=== PATIENT | female | born 2000 | race Caucasian/White ===

== ENCOUNTER 2020-09-17 02:02 | Inpatient (IN) ==
[2020-09-17] MEDS ORDERED: ONDANSETRON 4 MG OD TAB PO STA (02:37)
[2020-09-17 02:46] LABS: Appearance Urine Clear (Clear); Bilirubin Urine Negative (Negative); Blood Urine Negative (Negative); Color Urine Yellow; Glucose Urine UA Negative (Negative); Ketones Urine Negative (Negative); Leukocyte Esterase Urine Negative (Negative); Nitrite Urine Negative (Negative); Protein Urine Negative (Negative); Specific Gravity Urine 1.023 (1.000-1.030); Urobilinogen Urine Negative (Negative)
--- NOTE | 2020-09-17 02:49 | Emergency Department Note ---
History of Present Illness General Chief complaint: Mental Health Evaluation Stated complaint: SEVERE DEPRESSION Time Seen by Provider: 09/17/20 02:22 Source: patient Mode of arrival: ambulatory Limitations: no limitations History of Present Illness Provider complaint: Mental health evaluation Maximum Pain Intensity: 4 This is a 20-year-old female who presents emergency department with a friend for a mental health evaluation. Patient states she has been feeling more depressed recently and is also had suicidal thoughts. Patient denies any specific plan more recently. States she does have a prior history of suicidal thoughts and has previously self harmed. Patient states she was seen here several days ago due to nausea and vomiting and admitted to being noncompliant with her current medications. She was written prescriptions for her medications and given additional medication for nausea but she states she threw them away. When asked why she states "I do not know". Patient states her psychiatrist had instructed her to come to the emergency room if she has any "bad thoughts". Pt seen during a time of high acuity and national emergency pandemic while wearing PPE. Home Medications Medication Instructions Recorded Confirmed Type fluvoxamine 100 mg PO DAILY #7 tab 09/13/20 09/17/20 Rx lamotrigine [Lamictal] 150 mg PO DAILY #7 tab 09/13/20 09/17/20 Rx ondansetron HCl [Zofran] 4 mg PO Q6H PRN #6 tab 09/13/20 09/17/20 Rx quetiapine 25 mg PO DAILY #7 tab 09/13/20 09/17/20 Rx Allergies Allergy/AdvReac Type Severity Reaction Status Date / Time No Known Allergies Allergy Unverified 09/17/20 11:48 Past Med/Surg History Medical History (Updated 09/17/20 @ 12:15 by Jessy Hutton MD) No pertinent past medical history OCD (obsessive compulsive disorder) Self-cutting of wrist Social History Smoking Status: Never smoker Preferred Language: Kitt[place] Communication Ability: Effective Feels Safe at Home: No Review of Systems See HPI for pertinent positives & negatives. and A total of 10 systems reviewed and were otherwise negative Physical Exam Vital Signs Vital Signs - 24 hr 09/17/20 02:10 Temperature 36.9 C Temperature Source Temporal Artery Scan Pulse Rate 92 H Respiratory Rate 16 Blood Pressure 143/105 H Blood Pressure Mean 117 Pulse Oximetry 99 Sepsis Recent Fever Within 48 Hours No Sepsis New/Unexplained Change in Mental Status No Sepsis Action Taken by Nursing No Action Required GENERAL: alert, well appearing, well nourished, no distress, non-toxic EYE EXAM: normal conjunctiva, PERRL and EOM's grossly intact OROPHARYNX: no exudate, no erythema, lips, buccal mucosa, and tongue normal and mucous membranes are moist NECK: supple, no nuchal rigidity, no adenopathy, non-tender LUNGS: Clear to auscultation. Normal chest wall mechanics, no w/r/r HEART: no murmurs, S1 normal and S2 normal ABDOMEN: abdomen soft, non-tender, normo-active bowel sounds, no masses, no rebound or guarding. BACK: Back is symmetrical on inspection and there is no deformity, no midline tenderness, no CVA tenderness. SKIN: no rashes and no bruising UPPER EXTREMITIES: upper extremities are grossly normal. FROM, nml pulses b/l. LOWER EXTREMITIES: No pitting edema. FROM, nml pulses b/l. NEURO EXAM: Normal sensorium, cranial nerves II-XII grossly intact, normal speech, no gross weakness of arms, no gross weakness of legs. Gross sensation intact. Course Course 0435: Patient seen by case mgmt and is agreeable with plan for voluntary inpatient treatment. [facility] contacted regarding the patient. 0800: Patient awaiting evaluation by [facility]. for likely admission. Administered Medications Hydroxyzine HCl (Hydroxyzine Hcl 25 Mg Tab) 50 mg PO HSZ PRN PRN Reason: Insomnia Stop: 10/17/20 08:13 Last Admin: 09/17/20 22:55 Dose: 50 mg Documented by: [id number] Admin: 09/17/20 21:59 Dose: 50 mg Documented by: [id number] Lamotrigine (Lamotrigine 25 Mg Tab) 25 mg PO QAM SYLVESTER Stop: 10/17/20 12:29 Last Admin: 09/17/20 12:49 Dose: 25 mg Documented by: [id number] Discontinued Medications Escitalopram Oxalate (Escitalopram Oxalate 10 Mg Tab) 5 mg PO ONCE ONE Stop: 09/17/20 12:27 Last Admin: 09/17/20 12:50 Dose: 5 mg Documented by: [id number] Ondansetron HCl (Ondansetron 4 Mg Od Tab) 4 mg PO NOW STA Stop: 09/17/20 02:38 Last Admin: 09/17/20 02:45 Dose: 4 mg Documented by: [id number] Medical Decision Making Differential Diagnosis Differential diagnoses considered include mood disorder, infection, hypoglycem ia, electrolyte abnormalities, cardiac sources, intracerebral event, toxicologic, neurologic, as well as others. Medical Records Attestation: I reviewed the patient's medical records. Home Medications Current Medication List: was personally reviewed by me Laboratory Data Attestation: I reviewed the patient's lab results. Result diagrams: 09/17/20 02:51 09/17/20 02:51 Lab Results 09/17/20 09/17/20 09/17/20 Range/Units 02:15 02:15 02:51 WBC (4.8-10.8) K/uL RBC (4.2-5.4) M/uL Hgb (12.0-16.0) g/dL Hct (37-47) % MCV (80-100) fL MCH (25-34) pg MCHC (32-36) g/dL RDW Std Deviation (36.4-46.3) fL RDW Coeff of Sapna (11.5-14.5) % Plt Count (130-400) K/uL MPV (7.4-10.4) fL Immature Gran % (Auto) % Neut % (Auto) % Lymph % (Auto) % [place] % (Auto) % Eos % (Auto) % Baso % (Auto) % Neut # (Auto) (1.4-6.5) K/uL Lymph # (Auto) (1.2-3.4) K/uL [place] # (Auto) (0.11-0.59) K/uL Eos # (Auto) (0-0.5) K/uL Baso # (Auto) (0-0.2) K/uL Immature Gran # (Auto) (0.00-0.02) K/uL Sodium (136-145) mmol/L Potassium (3.5-5.1) mmol/L Chloride (98-107) mmol/L Carbon Dioxide (21-32) mmol/L Anion Gap (3-11) BUN (7-18) mg/dl Creatinine (0.6-1.2) mg/dl Est Cr Clr Drug Dosing ml/min Est GFR ( Amer) Est GFR (Non-Af Amer) BUN/Creatinine Ratio (10-20) Glucose (70-99) mg/dl Calcium (8.5-10.1) mg/dl Total Bilirubin (0.2-1) mg/dl AST (15-37) U/L ALT (12-78) U/L Alkaline Phosphatase (45-117) U/L Total Protein (6.4-8.2) gm/dl Albumin (3.4-5.0) gm/dl Globulin (2.5-4.0) gm/dl Albumin/Globulin Ratio (0.9-2) TSH (0.300-4.500) uIu/ml HCG, Qual Negative (Negative) Urine Color Yellow Urine Appearance Clear (Clear) Urine pH 7.0 (4.5-7.5) Ur Specific [place] 1.023 (1.000-1.030) Urine Protein Negative (Negative) Urine Glucose (UA) Negative (Negative) Urine Ketones Negative (Negative) Urine Blood Negative (Negative) Urine Nitrite Negative (Negative) Urine Bilirubin Negative (Negative) Urine Urobilinogen Negative (Negative) Ur Leukocyte Esterase Negative (Negative) Salicylates (2.8-20) mg/dl Urine Opiates Screen Neg (Neg) Ur Methadone, Qual Neg (Neg) Acetaminophen (10-30) ug/ml Urine Barbiturates Neg (Neg) Ur Phencyclidine (PCP) Neg (Neg) U Amphetamin/Meth Scrn Neg (Neg) MDMA (Ecstasy) Screen Neg (Neg) U Benzodiazepines Scrn Neg (Neg) Ur Cocaine Metabolite Neg (Neg) U Marijuana (THC) Screen Pos H (Neg) Ethyl Alcohol mg/dL (0-3) mg/dl COVID-19 Eval Order SARS-CoV-2 (PCR) (Negative) Influenza Type A (PCR) (Neg) Influenza Type B (PCR) (Neg) RSV (RT-PCR) (Neg) 09/17/20 09/17/20 09/17/20 Range/Units 02:51 02:51 02:51 WBC 9.71 (4.8-10.8) K/uL RBC 4.56 (4.2-5.4) M/uL Hgb 14.5 (12.0-16.0) g/dL Hct 42.4 (37-47) % MCV 93.0 (80-100) fL MCH 31.8 (25-34) pg MCHC 34.2 (32-36) g/dL RDW Std Deviation 46.4 H (36.4-46.3) fL RDW Coeff of Sapna 13.6 (11.5-14.5) % Plt Count 300 (130-400) K/uL MPV 9.8 (7.4-10.4) fL Immature Gran % (Auto) 0.2 % Neut % (Auto) 63.3 % Lymph % (Auto) 25.4 % [place] % (Auto) 10.2 % Eos % (Auto) 0.7 % Baso % (Auto) 0.2 % Neut # (Auto) 6.14 (1.4-6.5) K/uL Lymph # (Auto) 2.47 (1.2-3.4) K/uL [place] # (Auto) 0.99 H (0.11-0.59) K/uL Eos # (Auto) 0.07 (0-0.5) K/uL Baso # (Auto) 0.02 (0-0.2) K/uL Immature Gran # (Auto) 0.02 (0.00-0.02) K/uL Sodium 140 (136-145) mmol/L Potassium 3.6 (3.5-5.1) mmol/L Chloride 110 H (98-107) mmol/L Carbon Dioxide 26 (21-32) mmol/L Anion Gap 4.0 (3-11) BUN 10 (7-18) mg/dl Creatinine 0.80 (0.6-1.2) mg/dl Est Cr Clr Drug Dosing 105.7 ml/min Est GFR ( Amer) 122.2 Est GFR (Non-Af Amer) 105.4 BUN/Creatinine Ratio 12.9 (10-20) Glucose 96 (70-99) mg/dl Calcium 8.6 (8.5-10.1) mg/dl Total Bilirubin 0.6 (0.2-1) mg/dl AST 15 (15-37) U/L ALT 19 (12-78) U/L Alkaline Phosphatase 56 (45-117) U/L Total Protein 8.3 H (6.4-8.2) gm/dl Albumin 3.7 (3.4-5.0) gm/dl Globulin 4.6 H (2.5-4.0) gm/dl Albumin/Globulin Ratio 0.8 L (0.9-2) TSH 3.120 (0.300-4.500) uIu/ml HCG, Qual (Negative) Urine Color Urine Appearance (Clear) Urine pH (4.5-7.5) Ur Specific [place] (1.000-1.030) Urine Protein (Negative) Urine Glucose (UA) (Negative) Urine Ketones (Negative) Urine Blood (Negative) Urine Nitrite (Negative) Urine Bilirubin (Negative) Urine Urobilinogen (Negative) Ur Leukocyte Esterase (Negative) Salicylates < 1.7 L (2.8-20) mg/dl Urine Opiates Screen (Neg) Ur Methadone, Qual (Neg) Acetaminophen < 2 L (10-30) ug/ml Urine Barbiturates (Neg) Ur Phencyclidine (PCP) (Neg) U Amphetamin/Meth Scrn (Neg) MDMA (Ecstasy) Screen (Neg) U Benzodiazepines Scrn (Neg) Ur Cocaine Metabolite (Neg) U Marijuana (THC) Screen (Neg) Ethyl Alcohol mg/dL (0-3) mg/dl COVID-19 Eval Order SARS-CoV-2 (PCR) (Negative) Influenza Type A (PCR) (Neg) Influenza Type B (PCR) (Neg) RSV (RT-PCR) (Neg) 09/17/20 09/17/20 09/17/20 Range/Units 02:51 05:01 05:01 WBC (4.8-10.8) K/uL RBC (4.2-5.4) M/uL Hgb (12.0-16.0) g/dL Hct (37-47) % MCV (80-100) fL MCH (25-34) pg MCHC (32-36) g/dL RDW Std Deviation (36.4-46.3) fL RDW Coeff of Sapna (11.5-14.5) % Plt Count (130-400) K/uL MPV (7.4-10.4) fL Immature Gran % (Auto) % Neut % (Auto) % Lymph % (Auto) % [place] % (Auto) % Eos % (Auto) % Baso % (Auto) % Neut # (Auto) (1.4-6.5) K/uL Lymph # (Auto) (1.2-3.4) K/uL [place] # (Auto) (0.11-0.59) K/uL Eos # (Auto) (0-0.5) K/uL Baso # (Auto) (0-0.2) K/uL Immature Gran # (Auto) (0.00-0.02) K/uL Sodium (136-145) mmol/L Potassium (3.5-5.1) mmol/L Chloride (98-107) mmol/L Carbon Dioxide (21-32) mmol/L Anion Gap (3-11) BUN (7-18) mg/dl Creatinine (0.6-1.2) mg/dl Est Cr Clr Drug Dosing ml/min Est GFR ( Amer) Est GFR (Non-Af Amer) BUN/Creatinine Ratio (10-20) Glucose (70-99) mg/dl Calcium (8.5-10.1) mg/dl Total Bilirubin (0.2-1) mg/dl AST (15-37) U/L ALT (12-78) U/L Alkaline Phosphatase (45-117) U/L Total Protein (6.4-8.2) gm/dl Albumin (3.4-5.0) gm/dl Globulin (2.5-4.0) gm/dl Albumin/Globulin Ratio (0.9-2) TSH (0.300-4.500) uIu/ml HCG, Qual (Negative) Urine Color Urine Appearance (Clear) Urine pH (4.5-7.5) Ur Specific [place] (1.000-1.030) Urine Protein (Negative) Urine Glucose (UA) (Negative) Urine Ketones (Negative) Urine Blood (Negative) Urine Nitrite (Negative) Urine Bilirubin (Negative) Urine Urobilinogen (Negative) Ur Leukocyte Esterase (Negative) Salicylates (2.8-20) mg/dl Urine Opiates Screen (Neg) Ur Methadone, Qual (Neg) Acetaminophen (10-30) ug/ml Urine Barbiturates (Neg) Ur Phencyclidine (PCP) (Neg) U Amphetamin/Meth Scrn (Neg) MDMA (Ecstasy) Screen (Neg) U Benzodiazepines Scrn (Neg) Ur Cocaine Metabolite (Neg) U Marijuana (THC) Screen (Neg) Ethyl Alcohol mg/dL < 3.0 (0-3) mg/dl COVID-19 Eval Order CovFluRsv at [facility] SARS-CoV-2 (PCR) NEGATIVE (Negative) Influenza Type A (PCR) Negative (Neg) Influenza Type B (PCR) Negative (Neg) RSV (RT-PCR) Negative (Neg) MDM Narrative Patient here for mental health evaluation. Patient's labs reassuring. Patient does have a history of depression and suicidal ideation as well as prior self- harm. Patient tearful here but cooperative. Agreed with plan for voluntary mental health admission. Patient with a history of noncompliance as well as cannabis abuse which I feel is more likely contributing to her recurrent nausea and vomiting. Patient's noncompliance with her medications could be contributing also. I do not suspect other occult [facility] pathology, infectious or metabolic etiology of symptoms. Patient with a soft and nontender abdominal exam. No recurrent vomiting while in the emergency room. Impression & Plan Depression, Suicidal ideation, Cannabis abuse, Noncompliance Discharge Plan Visit Data Chief Complaint: Mental Health Evaluation Stated Complaint: SEVERE DEPRESSION ED Provider: Domenica Sutton Discharge Problem: Depression, Suicidal ideation, Cannabis abuse, Noncompliance Patient Disposition: Admitted As Inpatient Discharge Instructions Interventions: ED Discharge Assessment Last Done: 09/17/20 09:04 Discharge Problem: Depression Qualifiers: Depression Type: major depressive disorder Major depression recurrence: unspecified whether recurrent Active/Remission status: currently active Major depression episode severity: moderate Qualified Code(s): F32.1 - Major depressive disorder, single episode, moderate
[2020-09-17 03:04] LABS: Amphetamines+Metham, Urine Neg (Neg); Barbiturates, Urine Neg (Neg); Benzodiazepine, Urine Neg (Neg); Cocaine, Urine Neg (Neg); MDMA (Ecstacy), Urine Neg (Neg); Methadone, Urine Neg (Neg); Opiate, Urine Neg (Neg); Phencyclidine, Urine Neg (Neg)
[2020-09-17 03:04] LABS: Basophils # (auto) 0.02 K/uL (0-0.2); Basophils % (auto) 0.2 %; Eosinophils # (auto) 0.07 K/uL (0-0.5); Eosinophils % (auto) 0.7 %; Hematocrit (blood only) 42.4 % (37-47); Hemoglobin 14.5 g/dL (12.0-16.0); Immature Granulocytes # (auto) 0.02 K/uL (0.00-0.02); Immature Granulocytes % (auto) 0.2 %; Lymphocytes # (auto) 2.47 K/uL (1.2-3.4); Lymphocytes % (auto) 25.4 %; Mean Corpuscular Hemoglobin 31.8 pg (25-34); Mean Corpuscular Hgb Conc 34.2 g/dL (32-36); Mean Platelet Volume 9.8 fL (7.4-10.4); Monocytes # (auto) 0.99 K/uL (0.11-0.59); Monocytes % (auto) 10.2 %; Neutrophils # (auto) 6.14 K/uL (1.4-6.5); Neutrophils % (auto) 63.3 %; Platelet Count 300 K/uL (130-400); RDW Coefficient of Variation 13.6 % (11.5-14.5); RDW Standard Deviation 46.4 fL (36.4-46.3); Red Blood Count 4.56 M/uL (4.2-5.4); White Blood Count 9.71 K/uL (4.8-10.8)
[2020-09-17 03:21] LABS: Albumin Level 3.7 gm/dl (3.4-5.0); BUN Creatinine Ratio 12.9 (10-20); Calcium 8.6 mg/dl (8.5-10.1); Creatinine Clr Calc Pharmacy 105.7 ml/min; Est GFR (African American) 122.2; Est GFR (Non-African American) 105.4; Potassium 3.6 mmol/L (3.5-5.1)
[2020-09-17 03:25] LABS: Pregnancy Test, Serum Negative (Negative)
[2020-09-17 03:29] LABS: Acetaminophen < 2 ug/ml (10-30); Salicylate < 1.7 mg/dl (2.8-20)
[2020-09-17 03:32] LABS: Albumin Globulin Ratio 0.8 (0.9-2); Bilirubin,Total 0.6 mg/dl (0.2-1); Globulin 4.6 gm/dl (2.5-4.0); Thyroid Stimulating Hormone 3.12 uIu/ml (0.300-4.500); Total Protein 8.3 gm/dl (6.4-8.2)
[2020-09-17 07:02] LABS: Influenza A virus by PCR Negative (Neg); Influenza B virus by PCR Negative (Neg); RSV by PCR Negative (Neg); SARS CoV2 RNA(COVID-19) InHosp NEGATIVE (Negative)
[2020-09-17] MEDS ORDERED: MAGNESIUM HYDROXIDE SUSP 30 ML UDC PO PRN (08:14)
[2020-09-17] MEDS ORDERED: BISMUTH SUBSALICYLATE LIQD 236 ML PO PRN (08:14)
[2020-09-17] MEDS ORDERED: SODIUM CHLORIDE 0.65% NA SOLN 45 ML (OCEAN) PRN (08:14)
[2020-09-17] MEDS ORDERED: ACETAMINOPHEN 325 MG TAB PO PRN (08:14)
[2020-09-17] MEDS ORDERED: ALUMINUM/MAGNESIUM SUSP 30 ML UDC PO PRN (08:14)
[2020-09-17] MEDS ORDERED: ONDANSETRON 4 MG OD TAB PO PRN (08:16)
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
--- NOTE | 2020-09-17 10:51 | Emergency Department Note ---
ED Visit Note The patient was evaluated by mental health services. She will be admitted to 3 S. . : Depression Qualifiers: Depression Type: major depressive disorder Major depression recurrence: unspecified whether recurrent Active/Remission status: currently active Major depression episode severity: moderate Qualified Code(s): F32.1 - Major depressive disorder, single episode, moderate
[2020-09-17] MEDS ORDERED: ESCITALOPRAM OXALATE 10 MG TAB PO ONE (12:26)
[2020-09-17] MEDS: lamoTRIgine 25 MG TAB PO SCH (12:49)
[2020-09-17] MEDS: hydrOXYzine HCl 25 MG TAB PO PRN ×2 (21:59→22:55)
[2020-09-18] MEDS: ESCITALOPRAM OXALATE 10 MG TAB PO SCH (09:12)
[2020-09-18] MEDS: lamoTRIgine 25 MG TAB PO SCH (09:13)
--- NOTE | 2020-09-18 10:03 | Psychiatric Progress Note ---
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 Inpatient treatment is medically necessary due to the severity of symptoms and risk for self-harm if discharged. (1) Depression: 09/17 -outpatient diagnosis of bipolar type II, but on my assessment patient endorses primarily depressive symptoms, with insufficient hypomanic symptoms to meet criteria for bipolar 2. Cannot rule out an [place] II component. Gather collateral information to help clarify diagnosis. Care coordinated with outpatient clinician, ANTONINA Oden. -Patient would benefit from psychotherapy and medication adjustments. Discussed multiple medication options, and she would like to resume lamotrigine. We will need to start with standard dose titration (25 mg daily x 2 weeks, then 50 mg daily) as she has been off of it for a week. Reviewed risks, benefits, and side effects, including Ziegler-Juancarlos syndrome, and she expressed understanding. She is unsure if the Luvox has been helpful and reports severe night sweats that are disrupting sleep, so would like to try something else. Discussed other SSRI options, and she agreed to a trial of escitalopram after review of risk, benefits, and side effects. 5 mg dose today, and start 10 mg tomorrow, and titrate as tolerated. She has had intermittent GI symptoms, unclear if triggered by abruptly stopping marijuana a week ago or stopping her psychotropic medications. Continue ondansetron as needed and monitor. -Hydroxyzine as needed for sleep and anxiety. She does not wish to resume Seroquel as believes it caused her to feel sedated and unmotivated throughout the day (although this may be due to her regular cannabis use too). -Family meeting if willing. Patient believes she will need to medically withdrawal from school. -Encourage group attendance and participation, work on healthy coping skills and discharge safety plan. 09/18 - Continue treatment plan as above - reviewed standard titration of lamotrigine, could consider further titration of escitalopram as tolerated. - We did increase patient's prn dose of HS hydroxyzine to 75mg due to morning grogginess today - Pt requesting to know "should I be on more medication?" and discussing previous use of Vyvanse - discussed that consideration for need for additional medications could be assess once she is stabilized on her current regimen, but may not be necessary even then. - Pt simultaneously requesting rapid discharge, but also reporting clear goals for treatment here in the hospital that she hopes to achieve. - Not able to contract for safety outside of the hospital at this time (2) OCD (obsessive compulsive disorder): 09/17 -psychoeducation provided regarding diagnoses, start SSRI as above. Refer for psychotherapy (3) Cannabis abuse: 09/17 -reviewed risks of heavy cannabis use, patient states she is aware and has been educated about these previously. She actually stopped smoking pot about a week ago, and some of her symptoms may be due to withdrawal. Continue to provide education and encouragement for abstinence and development of healthier coping skills. (4) Self-cutting of wrist: Risk Factors Assessment Male: No : No Do You Have Access To A Gun?: No Health Problems: No Mental Health Diagnoses: Yes Substance Use Disorders: Yes Previous Attempt: No Family History of Suicide: No Previous Psychiatric Hospitalization: Yes Hopelessness: Yes Smoker: No Protective Factors Assessment Voodoo Beliefs: No : No Responsible for Young Children: No Employed: No Stable Relationships: No Supportive Family: No Good Rapport with Provider: Yes Interval History Identifying Information DONNA EDDY is a 20-year-old F [employer] student from [place] who currently lives in [place] with roommates, has a history of bipolar disorder and anxiety, and was admitted on 09/17/20 08:14 on a 201 voluntary commitment for worsening mood, medication nonadherence, and suicidal thoughts. Chief Complaint "I'm a lot better today." Review of Systems Notes Constitutional: reports feeling groggy this AM Cardiovascular: denied Respiratory: denied Gastrointestinal: denied Neurological: denied Psychiatric: denies symptoms other than stated above Total of at least 10 systems reviewed, pertinent positives as above and in HPI. Sleep Information Total Hours of Sleep: 6.25 Meal Information Percent Meal Consumed - Breakfast: 90 Percent Meal Consumed - Lunch: 0 Percent Meal Consumed - Dinner: 100 Nutrition Comment: Pt had food brought in. Subjective Subjective Patient was seen & assessed and interval progress reviewed with treatment team. Staff report the patient has been participating in group programming. She is being encouraged to consider a support meeting, but has admitted to a strained relationship with parents. Pt was seen today to assess progress since admission. Pt states "I'm a lot better today." She shares that she had been feeling rather depressed and prior to her admission she "would wake up crying, then cry a lot throughout the day." Pt states that she is happy as "I only cried twice today, and I didn't cry when I first woke up." Pt shares that her depression seems to be lifted a bit, but states she is now feeling more anxious. She has been attending groups and processing things she would like to see change when she is discharged - "I'm just trying to think of all the things I've done and all the things I need to do, it's just a lot to keep track of." Pt states that she slept well last evening with hydroxyzine, but does feel she was overly groggy this morning. She is also concerned that the escitalopram may be causing fatigue as well. Pt admits that "the negativity" is better, but with regard to suicidality she states "I'm not too sure, it's pretty sporadic. I feel fine now, but there are times I still find myself sitting someone and just staring off wondering what the point of all this is." Pt admits that she is still very focused on discharge, and was informed of our anticipated length of stay to ensure stability through the weekend. Pt simultaneous states that she is wanting to go home, but also stating "I think it's really good that I'm here and I need to work on what I need to change, people I need to stop talking to." We discussed the idea of a support meeting. Pt denied other needs and then exited the office. Pt knocked again on this provider's office door shortly after our initial encounter. She stated "I wanted to talk about medications." She shares that she had previously been prescribed Vyvanse, but had stopped the medication "in like the first couple weeks of college" due to feeling "it made me like crash. I would feel good during the day and then my mood would just bottom out at night." Despite identifying this concern with the medication, patient inquired "would you suggest I go back on that?" This provider expressed concern related to the mood instability with the medication and also stated that it is recommended that her mood and anxiety concerns be stabilized prior to exploring whether separate medications for attention are necessary. Pt then inquired "do you think I should be on more medications?" We reviewed her current regimen again, along with plan for further titration of lamotrigine as scheduled. She was reminded that she will meet with a provider each day, but that presently it was recommended to keep her current regimen unchanged, since it was just initiated yesterday. Pt inquired "what is there to do around here, since we can't go outside?" Pt was given numerous suggestions and then denied other questions or concerns. Physical Exam Psychiatric Orientation: alert, oriented x 3 and cooperative Apperance: appropriately dressed, appropriately groomed and appeared stated age Eye Contact: good eye contact Motor Behavior: steady gait and station and no abnormal motor movements Speech: normal rate/rhythm/volume of speech Affect: + constricted affect (energy appearing heightened, but affect itself still seems flat/depressed) Mood: + anxious mood ("today I'm feeling really, really anxious") Thought Process: goal directed thought process (but seems distracted, occasionally interrupting with off-topic questions) Thought Content: no hopelessness and no worthlessness Suicidal Thoughts: denies suicidal thoughts denies at time of encounter, but cannot convincingly contract for safety outside of the hospital setting Homicidal Thoughts: denies homicidal thoughts Hallucinations: no auditory hallucinations and no visual hallucinations Cognition: attention grossly intact and language grossly intact Estimated Intelligence: consistent with education level Insight: + fair insight Judgement: + fair judgement Vital Signs (Past 24 Hours) Last Vital Signs Temp 36.6 C 09/18/20 06:00 Pulse 101 H 09/18/20 06:41 Resp 16 09/18/20 06:00 BP 107/71 09/18/20 06:41 Pulse Ox 98 09/17/20 13:01 Results & Data ([facility]) Current Inpatient Medications Current Inpatient Medications: Current Inpatient Medications Acetaminophen (Acetaminophen 325 Mg Tab) 650 mg PO Q4H PRN PRN Reason: Headache or Minor Fever Stop: 10/17/20 08:13 Al Hydrox/Mg Hydrox/Simethicone (Aluminum/Magnesium Susp 30 Ml Udc) 30 ml PO Q4H PRN PRN Reason: GI Upset Stop: 10/17/20 08:13 Bismuth Subsalicylate (Bismuth Subsalicylate Liqd 236 Ml) 15 ml PO PRN PRN PRN Reason: Loose Stool Stop: 10/17/20 08:13 Escitalopram Oxalate (Escitalopram Oxalate 10 Mg Tab) 10 mg PO QAM SYLVESTER Stop: 10/18/20 08:59 Last Admin: 09/18/20 09:12 Dose: 10 mg Documented by: Hydroxyzine HCl (Hydroxyzine Hcl 25 Mg Tab) 50 mg PO HSZ PRN PRN Reason: Insomnia Stop: 10/17/20 08:13 Last Admin: 09/17/20 22:55 Dose: 50 mg Documented by: Hydroxyzine HCl (Hydroxyzine Hcl 25 Mg Tab) 25 mg PO Q4H PRN PRN Reason: Anxiety Stop: 10/17/20 08:13 Lamotrigine (Lamotrigine 25 Mg Tab) 25 mg PO QAM SYLVESTER Stop: 10/17/20 12:29 Last Admin: 09/18/20 09:13 Dose: 25 mg Documented by: Magnesium Hydroxide (Magnesium Hydroxide Susp 30 Ml Udc) 30 ml PO DAILY PRN PRN Reason: Constipation Stop: 10/17/20 08:13 Ondansetron HCl (Ondansetron 4 Mg Od Tab) 4 mg PO Q6H PRN PRN Reason: nausea and vomiting Stop: 10/17/20 08:15 Sodium Chloride (Sodium Chloride 0.65% Na Soln 45 Ml ([place])) 1 - 2 sprays NA PRN PRN PRN Reason: Nasal Dryness/Congestion Stop: 10/17/20 08:13 Mental Health & Subst Abuse Tx Therapist Name of Therapist: used to see therapist through [facility], none now Legal Coordinator Name of Legal Coordinator: None Post Discharge Appointments Primary Care Physician Name Of Family Doctor: Lakshmi Evans, [facility], Pt does not want any info released to her (1) Depression Active/Remission status: currently active Depression Type: major depressive disorder Major depression episode severity: moderate Major depression recurrence: unspecified whether recurrent Qualified Code(s): F32.1 - Major depressive disorder, single episode, moderate
[2020-09-18] MEDS: hydrOXYzine HCl 25 MG TAB PO PRN (22:21)
[2020-09-19 06:56] LABS: Marijuana Quant, GCMS Urine 72 ng/mL (<5)
[2020-09-19] MEDS: lamoTRIgine 25 MG TAB PO SCH (09:08)
[2020-09-19] MEDS: ESCITALOPRAM OXALATE 10 MG TAB PO SCH (09:08)
--- NOTE | 2020-09-19 15:11 | Psychiatric Progress Note ---
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 Inpatient treatment is medically necessary due to the severity of symptoms and risk for self-harm if discharged. (1) Depression: 09/17 -outpatient diagnosis of bipolar type II, but on my assessment patient endorses primarily depressive symptoms, with insufficient hypomanic symptoms to meet criteria for bipolar 2. Cannot rule out an [place] II component. Gather collateral information to help clarify diagnosis. Care coordinated with outpatient clinician, ANTONINA Oden. -Patient would benefit from psychotherapy and medication adjustments. Discussed multiple medication options, and she would like to resume lamotrigine. We will need to start with standard dose titration (25 mg daily x 2 weeks, then 50 mg daily) as she has been off of it for a week. Reviewed risks, benefits, and side effects, including Ziegler-Juancarlos syndrome, and she expressed understanding. She is unsure if the Luvox has been helpful and reports severe night sweats that are disrupting sleep, so would like to try something else. Discussed other SSRI options, and she agreed to a trial of escitalopram after review of risk, benefits, and side effects. 5 mg dose today, and start 10 mg tomorrow, and titrate as tolerated. She has had intermittent GI symptoms, unclear if triggered by abruptly stopping marijuana a week ago or stopping her psychotropic medications. Continue ondansetron as needed and monitor. -Hydroxyzine as needed for sleep and anxiety. She does not wish to resume Seroquel as believes it caused her to feel sedated and unmotivated throughout the day (although this may be due to her regular cannabis use too). -Family meeting if willing. Patient believes she will need to medically withdrawal from school. -Encourage group attendance and participation, work on healthy coping skills and discharge safety plan. 09/18 - Continue treatment plan as above - reviewed standard titration of lamotrigine, could consider further titration of escitalopram as tolerated. - We did increase patient's prn dose of HS hydroxyzine to 75mg due to morning grogginess today - Pt requesting to know "should I be on more medication?" and discussing previous use of Vyvanse - discussed that consideration for need for additional medications could be assess once she is stabilized on her current regimen, but may not be necessary even then. - Pt simultaneously requesting rapid discharge, but also reporting clear goals for treatment here in the hospital that she hopes to achieve. - Not able to contract for safety outside of the hospital at this time 09/19 -Patient now reports she is no longer having self-injurious impulses or suicidal ideation and eager for discharge. She agrees to readdress tomorrow. Will review with treatment team in the meantime regarding clinical progress and outpatient supports presently scheduled and available to her. Due to her presentation and symptom acuity including self-injurious impulse prior to admission, she is felt to be at risk for quick relapse if discharged too soon however trajectory does appear positive and she is now denying continued suic idal ideation. -She denies any concerns associated with conversion to Lexapro so far. Psychoeducation provided regarding expected benefits of antidepressant and importance of consistent compliance with mood stabilizer treatment (2) OCD (obsessive compulsive disorder): 09/17 -psychoeducation provided regarding diagnoses, start SSRI as above. Refer for psychotherapy (3) Cannabis abuse: 09/17 -reviewed risks of heavy cannabis use, patient states she is aware and has been educated about these previously. She actually stopped smoking pot about a week ago, and some of her symptoms may be due to withdrawal. Continue to provide education and encouragement for abstinence and development of healthier coping skills. 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 Chief Complaint "I realize I've gotten a lot of help here. I think it was really overwhelmed. How soon can I get out of here?" Review of Systems Sleep Information Total Hours of Sleep: 5.5 Meal Information Percent Meal Consumed - Breakfast: 25 Percent Meal Consumed - Lunch: 50 Percent Meal Consumed - Dinner: 85 Nutrition Comment: Pt had food brought in. Subjective Subjective Patient was seen & assessed and interval progress reviewed with treatment team. Case history reviewed. Patient presented with suicidal thoughts and plan to cut her wrist with active furtherance of grabbing a knife however did not cut herself and sought help resulting in voluntary psychiatric admission. Here she has been restarted on Lamictal following lapse and fluvoxamine converted to Lexapro. In reviewing medical progress note from yesterday, patient presented with a rapidly changing agenda. yesterday she was able to identify the benefits of the therapeutic environment identifying triggers and improving coping strategies. Nursing staff reports she describes her mood last evening as a 6 o ut of 10 and "relieved." She plans to withdraw from this semester. She was informed yesterday that she will be able to have her own apartment away from her roommates which apparently was a big relief. On interview she presents as inwardly focused and speaks of losing touch with reality prior to her admission. She describes the last year as being very difficult secondary to the viral pandemic with loss of routines and a sense of purpose. She states that, for least the past few months, she has significantly lost interest in previously enjoyed activities. She describes herself as a "zombie" at night. She perceives a history of seasonal mood decompensation and, when the weather is cold and cloudy, her mood tends to be worse. She reports when recently in [place] her mood abruptly improved which she attributed to the sunshine. When asked about her future, she indicates that she would like to receive her finance degree and laughs and states that she wants to launder money. When asked what she means by this, she states she likes to help people save their money which is something she believes she is good at and she also acknowledges that working with money gives her a sense of power and control that she enjoys. She denies ongoing suicidal ideation or self-injurious impulses presently. She states she has decided that she deserves to live just as everyone else does and feeling more optimistic. While she again reports perception of significant therapeutic benefit from psychiatric hospitalization and high degree of need due to symptom severity prior to admission, she again indicates that she is eager to go and asks if she can be discharged as soon as possible. Reviewed with her the minimal requisites for discharge regarding improved immediate safety, optimizing risk reduction, and adequate follow-up. She was informed that we would see how the next 24 hours go however there was a good possibility that discharge would not occur until at least Monday to minimize her risk for quick relapse if discharged too soon without sufficient mitigation of outside stressors. Physical Exam Psychiatric Orientation: alert, oriented x 3 and cooperative Apperance: appropriately groomed and appeared stated age Eye Contact: good eye contact Motor Behavior: steady gait and station; + abnormal motor movements Speech: normal rate/rhythm/volume of speech (Not pressured but needed little prompting) Affect had a superficial quality. "Optimistic" Thought Process: + circumstantial thought process; + thought association not intact (Mildly tangential at times) Thought Content: reality based without delusions Suicidal Thoughts: denies suicidal thoughts Homicidal Thoughts: denies homicidal thoughts Cognition: recent memory grossly intact Estimated Intelligence: average estimated intelligence Insight: + fair insight Judgement: + fair judgement Vital Signs (Past 24 Hours) Last Vital Signs Temp 36.6 C 09/19/20 06:51 Pulse 77 09/19/20 06:52 Resp 16 09/19/20 06:51 BP 109/73 09/19/20 06:52 Pulse Ox 98 09/17/20 13:01 Results & Data ([facility]) Laboratory Results Laboratory Results - last 24 hr 09/17/20 02:15 U Marijuana THC Carboxy 72 H Drug Screen Comment SEE NOTE Current Inpatient Medications Current Inpatient Medications: Current Inpatient Medications Acetaminophen (Acetaminophen 325 Mg Tab) 650 mg PO Q4H PRN PRN Reason: Headache or Minor Fever Stop: 10/17/20 08:13 Last Admin: 09/18/20 23:01 Dose: 650 mg Documented by: Al Hydrox/Mg Hydrox/Simethicone (Aluminum/Magnesium Susp 30 Ml Udc) 30 ml PO Q4H PRN PRN Reason: GI Upset Stop: 10/17/20 08:13 Bismuth Subsalicylate (Bismuth Subsalicylate Liqd 236 Ml) 15 ml PO PRN PRN PRN Reason: Loose Stool Stop: 10/17/20 08:13 Escitalopram Oxalate (Escitalopram Oxalate 10 Mg Tab) 10 mg PO QAM SYLVESTER Stop: 10/18/20 08:59 Last Admin: 09/19/20 09:08 Dose: 10 mg Documented by: Hydroxyzine HCl (Hydroxyzine Hcl 25 Mg Tab) 25 mg PO Q4H PRN PRN Reason: Anxiety Stop: 10/17/20 08:13 Hydroxyzine HCl (Hydroxyzine Hcl 25 Mg Tab) 75 mg PO HSZ PRN PRN Reason: Insomnia Stop: 10/17/20 08:13 Last Admin: 09/18/20 22:21 Dose: 75 mg Documented by: Lamotrigine (Lamotrigine 25 Mg Tab) 25 mg PO QAM SYLVESTER Stop: 10/17/20 12:29 Last Admin: 09/19/20 09:08 Dose: 25 mg Documented by: Magnesium Hydroxide (Magnesium Hydroxide Susp 30 Ml Udc) 30 ml PO DAILY PRN PRN Reason: Constipation Stop: 10/17/20 08:13 Ondansetron HCl (Ondansetron 4 Mg Od Tab) 4 mg PO Q6H PRN PRN Reason: nausea and vomiting Stop: 10/17/20 08:15 Sodium Chloride (Sodium Chloride 0.65% Na Soln 45 Ml ([place])) 1 - 2 sprays NA PRN PRN PRN Reason: Nasal Dryness/Congestion Stop: 10/17/20 08:13 Mental Health & Subst Abuse Tx Psychiatrist Name of Psychiatrist: [facility] - ANTONINA Oden Psychiatrist's Psychiatric Appointment Comment: [address] [place] [address] Therapist Name of Therapist: [facility] Therapist's Therapy Appointment Comment: Telehealth Hat Model Name of Hat Model: Student Care and Advocacy Phone Number for Hat Model: [phone] Post Discharge Appointments Primary Care Physician Name Of Family Doctor: Lakshmi Evans [facility] Provider Appointment Comment: Pt does not want any info released to her Contact Information Discharge Discharge Address: [address] [place] [address] (1) Depression Active/Remission status: currently active Depression Type: major depressive disorder Major depression episode severity: moderate Major depression recurrence: unspecified whether recurrent Qualified Code(s): F32.1 - Major depressive disorder, single episode, moderate
[2020-09-19] MEDS: hydrOXYzine HCl 25 MG TAB PO PRN ×2 (22:32→23:30)
[2020-09-20] MEDS: ESCITALOPRAM OXALATE 10 MG TAB PO SCH (08:57)
[2020-09-20] MEDS: lamoTRIgine 25 MG TAB PO SCH (08:57)
--- NOTE | 2020-09-20 15:02 | Psychiatric Progress Note ---
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 Inpatient treatment is medically necessary due to the severity of symptoms and risk for self-harm if discharged. (1) Depression: 09/17 -outpatient diagnosis of bipolar type II, but on my assessment patient endorses primarily depressive symptoms, with insufficient hypomanic symptoms to meet criteria for bipolar 2. Cannot rule out an [place] II component. Gather collateral information to help clarify diagnosis. Care coordinated with outpatient clinician, ANTONINA Oden. -Patient would benefit from psychotherapy and medication adjustments. Discussed multiple medication options, and she would like to resume lamotrigine. We will need to start with standard dose titration (25 mg daily x 2 weeks, then 50 mg daily) as she has been off of it for a week. Reviewed risks, benefits, and side effects, including Ziegler-Juancarlos syndrome, and she expressed understanding. She is unsure if the Luvox has been helpful and reports severe night sweats that are disrupting sleep, so would like to try something else. Discussed other SSRI options, and she agreed to a trial of escitalopram after review of risk, benefits, and side effects. 5 mg dose today, and start 10 mg tomorrow, and titrate as tolerated. She has had intermittent GI symptoms, unclear if triggered by abruptly stopping marijuana a week ago or stopping her psychotropic medications. Continue ondansetron as needed and monitor. -Hydroxyzine as needed for sleep and anxiety. She does not wish to resume Seroquel as believes it caused her to feel sedated and unmotivated throughout the day (although this may be due to her regular cannabis use too). -Family meeting if willing. Patient believes she will need to medically withdrawal from school. -Encourage group attendance and participation, work on healthy coping skills and discharge safety plan. 09/18 - Continue treatment plan as above - reviewed standard titration of lamotrigine, could consider further titration of escitalopram as tolerated. - We did increase patient's prn dose of HS hydroxyzine to 75mg due to morning grogginess today - Pt requesting to know "should I be on more medication?" and discussing previous use of Vyvanse - discussed that consideration for need for additional medications could be assess once she is stabilized on her current regimen, but may not be necessary even then. - Pt simultaneously requesting rapid discharge, but also reporting clear goals for treatment here in the hospital that she hopes to achieve. - Not able to contract for safety outside of the hospital at this time 09/19 -Patient now reports she is no longer having self-injurious impulses or suicidal ideation and eager for discharge. She agrees to readdress tomorrow. Will review with treatment team in the meantime regarding clinical progress and outpatient supports presently scheduled and available to her. Due to her presentation and symptom acuity including self-injurious impulse prior to admission, she is felt to be at risk for quick relapse if discharged too soon however trajectory does appear positive and she is now denying continued suic idal ideation. -She denies any concerns associated with conversion to Lexapro so far. Psychoeducation provided regarding expected benefits of antidepressant and importance of consistent compliance with mood stabilizer treatment 09/20 -We will plan for likely discharge Monday if she is able to maintain her composure and self-control despite her frustration in the next 24 hours. She continues to deny recurrence of self-injurious impulses and denies suicidal ideation. -Patient continues to require scheduling of aftercare appointments which will need to be done on Monday (2) OCD (obsessive compulsive disorder): 09/17 -psychoeducation provided regarding diagnoses, start SSRI as above. Refer for psychotherapy (3) Cannabis abuse: 09/17 -reviewed risks of heavy cannabis use, patient states she is aware and has been educated about these previously. She actually stopped smoking pot about a week ago, and some of her symptoms may be due to withdrawal. Continue to provide education and encouragement for abstinence and development of healthier coping skills. (4) Self-cutting of wrist: Risk Factors Assessment Male: No : No Do You Have Access To A Gun?: No Health Problems: No Mental Health Diagnoses: Yes Substance Use Disorders: Yes Previous Attempt: No Family History of Suicide: No Previous Psychiatric Hospitalization: Yes Hopelessness: Yes Smoker: No Protective Factors Assessment Lutheran Beliefs: No : No Responsible for Young Children: No Employed: No Stable Relationships: No Supportive Family: No Good Rapport with Provider: Yes Interval History Identifying Information DONNA EDDY is a 20-year-old F [employer] student from [place] who currently lives in [place] with roommates, has a history of bipolar disorder and anxiety, and was admitted on 09/17/20 08:14 on a 201 voluntary commitment for worsening mood, medication nonadherence, and suicidal thoughts. Chief Complaint "I am really hoping to go home. I do not think I will benefit from staying here any longer even though I really think I needed this". Review of Systems Sleep Information Total Hours of Sleep: 6 Meal Information Percent Meal Consumed - Breakfast: 25 Percent Meal Consumed - Lunch: 85 Percent Meal Consumed - Dinner: 50 Nutrition Comment: Pt had food brought in. Subjective Subjective Patient was seen & assessed and interval progress reviewed with treatment team. Patient last night indicated to staff that she had not cried at all yesterday for the first time in quite some time. There is a general perception of demonstration of a flight to health and quick desire for discharge. Confirmed follow-up appointments have not yet been made. Patient has signed a 72-hour notice. She asks me if I am ready for her spiel on approach today and immediately presses the case for discharge. Identifies desire to be with her mother and her friend who reportedly will be coming to visit her on Monday as well as desire to get her second COVID-19 vaccination which she is reportedly scheduled for later today. She appears frustrated and becomes tearful in discussing discharge planning. She was informed that, to mitigate her risk, aftercare appointments are to be scheduled prior to discharge and she requires assistance addressing medical withdrawal from school and would benefit from assistance from social work tomorrow. We discussed expectations and considered evidence that her coping is still fairly easily overwhelmed. She denies recurrence of self-injurious impulses and continues to tolerate psychotropic regimen without perceived side effects. Physical Exam Psychiatric Orientation: alert and oriented x 3 Apperance: appropriately dressed and appropriately groomed Eye Contact: good eye contact Motor Behavior: steady gait and station and no abnormal motor movements Mildly hyperverbal but not pressured Affect mildly labile with quick tearfulness when frustrated Mood: no depressed mood (She denies feeling depressed) Thought Process: goal directed thought process and + perseveration (On discharge) Thought Content: + preoccupation (Discharge); no hopelessness Suicidal Thoughts: denies suicidal thoughts, denies suicidal plan and denies suicidal intent Homicidal Thoughts: denies homicidal thoughts Hallucinations: no auditory hallucinations and no visual hallucinations Cognition: recent memory grossly intact and language grossly intact Estimated Intelligence: average estimated intelligence Insight: + fair insight Judgement: + fair judgement Vital Signs (Past 24 Hours) Last Vital Signs Temp 36.8 C 09/20/20 06:59 Pulse 109 H 09/20/20 06:59 Resp 16 09/20/20 06:59 BP 101/69 09/20/20 06:59 Pulse Ox 98 09/17/20 13:01 Results & Data ([facility]) Current Inpatient Medications Current Inpatient Medications: Current Inpatient Medications Acetaminophen (Acetaminophen 325 Mg Tab) 650 mg PO Q4H PRN PRN Reason: Headache or Minor Fever Stop: 10/17/20 08:13 Last Admin: 09/18/20 23:01 Dose: 650 mg Documented by: Al Hydrox/Mg Hydrox/Simethicone (Aluminum/Magnesium Susp 30 Ml Udc) 30 ml PO Q4H PRN PRN Reason: GI Upset Stop: 10/17/20 08:13 Bismuth Subsalicylate (Bismuth Subsalicylate Liqd 236 Ml) 15 ml PO PRN PRN PRN Reason: Loose Stool Stop: 10/17/20 08:13 Escitalopram Oxalate (Escitalopram Oxalate 10 Mg Tab) 10 mg PO QAM SYL[place]STER Stop: 10/18/20 08:59 Last Admin: 09/20/20 08:57 Dose: 10 mg Documented by: Hydroxyzine HCl (Hydroxyzine Hcl 25 Mg Tab) 25 mg PO Q4H PRN PRN Reason: Anxiety Stop: 10/17/20 08:13 Last Admin: 09/19/20 23:30 Dose: 25 mg Documented by: Hydroxyzine HCl (Hydroxyzine Hcl 25 Mg Tab) 75 mg PO HSZ PRN PRN Reason: Insomnia Stop: 10/17/20 08:13 Last Admin: 09/19/20 22:32 Dose: 75 mg Documented by: Lamotrigine (Lamotrigine 25 Mg Tab) 25 mg PO QAM SYLVESTER Stop: 10/17/20 12:29 Last Admin: 09/20/20 08:57 Dose: 25 mg Documented by: Magnesium Hydroxide (Magnesium Hydroxide Susp 30 Ml Udc) 30 ml PO DAILY PRN PRN Reason: Constipation Stop: 10/17/20 08:13 Ondansetron HCl (Ondansetron 4 Mg Od Tab) 4 mg PO Q6H PRN PRN Reason: nausea and vomiting Stop: 10/17/20 08:15 Sodium Chloride (Sodium Chloride 0.65% Na Soln 45 Ml ([place])) 1 - 2 sprays NA PRN PRN PRN Reason: Nasal Dryness/Congestion Stop: 10/17/20 08:13 Mental Health & Subst Abuse Tx Psychiatrist Name of Psychiatrist: [facility] - ANTONINA Oden Psychiatrist's Psychiatric Appointment Comment: [address] [place] [address] Therapist Name of Therapist: [facility] Therapist's Therapy Appointment Comment: Telehealth Etl Database Developer Name of Etl Database Developer: [employer] Phone Number for Etl Database Developer: [phone] Post Discharge Appointments Primary Care Physician Name Of Family Doctor: Lakshmi [facility] Provider Appointment Comment: Pt does not want any info released to her Contact Information Discharge Discharge Address: [address] [place] [address] (1) Depression Active/Remission status: currently active Depression Type: major depressive disorder Major depression episode severity: moderate Major depression recurrence: unspecified whether recurrent Qualified Code(s): F32.1 - Major depressive disorder, single episode, moderate
[2020-09-20] MEDS: hydrOXYzine HCl 25 MG TAB PO PRN ×2 (22:33→23:26)
[2020-09-21] MEDS: ESCITALOPRAM OXALATE 10 MG TAB PO SCH (08:51)
[2020-09-21] MEDS: lamoTRIgine 25 MG TAB PO SCH (08:51)
--- NOTE | 2020-09-21 10:20 | Discharge Summary ---
Date of Service September 21, 2020 History of Present Illness Patient presented to the ER overnight after she had thoughts to cut herself and picked up a knife to do so, but then put it down. She was unable to clarify whether she was going to cut herself in order to end her life, or for some other reason. She did report a history of cutting. She reported nonadherence with her psychotropic medications (lamotrigine, fluvoxamine, and quetiapine), and had just been seen in the ER several days prior with complaint of nausea and vomiting from medication withdrawal. She said she believed her roommates had taken her medications, and was given prescriptions for all of them, but told ER staff last night that she had not resumed the medications and had thrown them away, because she was angry and frustrated that she has to depend on medication. She appeared depressed and tearful, and reported multiple stressors including not getting along with her roommates, has not been going to class for several weeks and is failing all of her classes. She reported daily marijuana use, smoking every 4 hours throughout the day, and UDS was + THC. Remainder of admission labs were normal. She signed in voluntarily for treatment. On my assessment, the patient reports she came in as she has a "breakdown, I've been having them for weeks." She called a friend who brought her to ER in the middle of the night, as she was feeling overwhelmed. She had been hanging out with friends but left to go home as she wasn't feeling well, and then had a "breakdown, just sitting on my bedroom floor just crying," feeling "really angry towards a lot of people and myself, felt lost, like I have no purpose," and having thoughts about hurting herself or ending her life. She picked up a knife, but did not cut herself. She talked to a friend who told her to put the knife down, then came and got her. States she had a similar episode in the past, but it was not this bad. Mood is labile, rapidly changing from depressed and panic to "blanking out." Mood has worsened since stopping her medications 1 week ago. She says she was taking them daily until that time, suspects her roommates "threw them out," as she kept them in a pouch and "it just disappeared." Sleep has been poor since stopping medication, only getting a couple of hours. Appetite has been poor for the past week due to nausea, which started right after she stopped her medication. Notes she has had nausea in the past when she missed her meds for a day. She has been on her current med regimen since Mar., does think her medications help "calm me down a lot" when she takes them regularly, although feels "crappy" the morning after taking Seroquel, which she describes as "groggy, sedated, unmotivated the rest of the day." She has had poor response to multiple other medications for sleep. She reports spending more when she is sad to boost mood, and smoking more pot when sad. She has periods of elevated mood that last at most a few hours in a day. She denies any history of decreased need for sleep, increased energy or decreased need for sleep. She reports racing thoughts "all the time" with focus on her problems, not liking "where I'm at and what I'm doing, just feeling really down about myself." She reports "stress cleaning a lot," likes her belongings to be "in a certain place," keeps her room in order. Estimates spending hours daily putting things in order, and is "constantly" ordering things around her and putting them in place. Checks locks and stove twice at night, sometimes more. She bathes 2-3 times a day and washes her hands "many times," with chapped and broken skin. She denies panic, HI, violence towards others, hallucinations, or paranoia. Her biggest concerns are low motivation, self esteem, and needing better coping skills. States that pot helps in the moment as she likes being high, and it helps her relax. She has cut back this week as she "wanted to clear my head more." Physical Exam Psychiatric Orientation: alert and cooperative Apperance: appropriately dressed, appropriately groomed and appeared stated age Eye Contact: + fair eye contact Motor Behavior: steady gait and station and no abnormal motor movements Speech: normal rate/rhythm/volume of speech Affect: euthymic affect and mood congruent with affect "Good, much better." Thought Process: goal directed thought process Thought Content: reality based without delusions Suicidal Thoughts: denies suicidal thoughts Homicidal Thoughts: denies homicidal thoughts Hallucinations: no auditory hallucinations and no visual hallucinations Cognition: recent memory grossly intact, attention grossly intact and language grossly intact Estimated Intelligence: consistent with education level Insight: + fair insight Judgement: + fair judgement Vital Signs (Past 24 Hours) Last Vital Signs Temp 36.7 C 09/21/20 06:40 Pulse 76 09/21/20 06:41 Resp 16 09/21/20 06:40 BP 113/79 09/21/20 06:41 Pulse Ox 98 09/17/20 13:01 Principal Diagnosis Depression not otherwise specified (rule out MDD versus bipolar type II versus BPD) Cannabis abuse Psychiatric Data The patient was hospitalized for 4 days. On admission, lamotrigine titration was resumed at 25 mg daily, as she had been off it for approximately 1 week. She did not feel fluvoxamine nor quetiapine had been beneficial, and a trial of a different SSRI was discussed, and escitalopram started. She tolerated these medications well. She also trialed hydroxyzine for sleep, but did not feel it was beneficial. She was observed to sleep 5.5-6.25 hours a night, and appeared to sleep well. She reported rapid improvement of mood, and was engaged in treatment, attending and participating in groups, and socializing with peers. She worked on her stressors, including securing new housing, and was able to contact her apartment complex and moved to a new apartment, so she would not have to interact with her roommates. Her suicidal thoughts resolved, and she was able to complete her discharge safety plan. She declined involvement of her family, although said she spoke to her mother by phone. She ultimately agreed to a meeting with a friend, which was scheduled for the day of discharge. She submitted a 72-hour notice requesting to withdraw from treatment, and then became upset when she was not immediately discharged, but was able to process with multiple staff, including the risks of leaving without adequate improvement in symptoms and outpatient treatment arrangements. She told staff she was checking the locks doors and thinking about sneaking "out with the six sigma project manager," in bed staff to allow her to go outside "for 1 minute," promising not to run away. She talked about giving a "speech" to the doctor and saying "all the right things," and then being very upset when she was not immediately discharged. She ultimately agreed to stay to allow adequate outpatient treatment to be arranged and to have a discharge planning meeting with a friend. Day of Discharge Assessment Staff report the patient was very upset after her meeting with a clinician yesterday, but processed with staff and talk to friends on the phone, and scheduled a discharge planning meeting with her friend today. She has been socializing with peers during free time, and attending groups and therapy. On my assessment, she states that her mood is much improved from admission, and denies any suicidal thoughts. She is able to review her safety plan, and is looking forward to getting outside and going bike riding with a friend. She is also excited about an upcoming trip to [place] with family, and about getting a new apartment. She states that the leasing office staff at her apartment complex have moved all of her belongings into her new apartment for her, so she will not have to interact with her old roommates at all. She is tolerating medications well, and denies side effects. She states willingness to follow-up with outpatient treatment. She denies any safety concerns with discharge. She and the medical social consultant had a discharge meeting with her friend Ben, who stated he and his roommate are supports for the patient and denied acute safety concerns. Transition of Care Transition Of Care Record: was reviewed with the patient Advance Directives Advance Directives Information Provided: Yes Advance Directives: No Mental Health Advance Directive: No Advance Directives on File: No Living Will: No Power of Drum Sander Offbearer: No Advance Directives Reason:: Declines as Mental Health Visit. Risk Factors Assessment Risk factors were mitigated by admission to the inpatient unit, use of medications to target mood and anxiety symptoms, education about her diagnoses and medications, education about the risks of substance use and recommendations for abstinence, referral for outpatient therapy, coordination with outpatient school office assistant, involving her in groups and therapy, working on healthy coping skills and a discharge safety plan, and discharge meeting with her friend. She is reporting improved mood, consistently denying suicidal thoughts and urges to self injure, and stating willingness to follow-up with outpatient treatment. She is requesting discharge, and as she is no longer at acute risk of harm to herself, can be managed as an outpatient at this time. She does not have risk factors indicating acute risk of harm to others. Male: No : No Do You Have Access To A Gun?: No Health Problems: No Mental Health Diagnoses: Yes Substance Use Disorders: Yes Previous Attempt: No Family History of Suicide: No Previous Psychiatric Hospitalization: Yes Hopelessness: Yes Smoker: No Protective Factors Assessment Gnosticism Beliefs: No : No Responsible for Young Children: No Employed: No Stable Relationships: No Supportive Family: No Good Rapport with Provider: Yes Tobacco Cessation at Discharge Tobacco Cessation Medication Prescribed at Discharge: Not Applicable/Non-Smoker Total Time Total Time Spent: Greater Than 30 Minutes Total Time Includes: Examination of the patient, Discharge Planning and Medication Reconciliation Discharge Data Lab Results 09/17/20 09/17/20 09/17/20 02:15 02:15 02:15 WBC RBC Hgb Hct MCV MCH MCHC RDW Std Deviation RDW Coeff of Sapna Plt Count MPV Immature Gran % (Auto) Neut % (Auto) Lymph % (Auto) Meeker % (Auto) Eos % (Auto) Baso % (Auto) Neut # (Auto) Lymph # (Auto) Meeker # (Auto) Eos # (Auto) Baso # (Auto) Immature Gran # (Auto) Sodium Potassium Chloride Carbon Dioxide Anion Gap BUN Creatinine Est Cr Clr Drug Dosing Est GFR ( Amer) Est GFR (Non-Af Amer) BUN/Creatinine Ratio Glucose Calcium Total Bilirubin AST ALT Alkaline Phosphatase Total Protein Albumin Globulin Albumin/Globulin Ratio TSH HCG, Qual Urine Color Yellow Urine Appearance Clear Urine pH 7.0 Ur Specific Edwards 1.023 Urine Protein Negative Urine Glucose (UA) Negative Urine Ketones Negative Urine Blood Negative Urine Nitrite Negative Urine Bilirubin Negative Urine Urobilinogen Negative Ur Leukocyte Esterase Negative Salicylates Urine Opiates Screen Neg Ur Methadone, Qual Neg Acetaminophen Urine Barbiturates Neg Ur Phencyclidine (PCP) Neg U Amphetamin/Meth Scrn Neg MDMA (Ecstasy) Screen Neg U Benzodiazepines Scrn Neg Ur Cocaine Metabolite Neg U Marijuana (THC) Screen Pos H U Marijuana THC Carboxy 72 H Drug Screen Comment SEE NOTE Ethyl Alcohol mg/dL COVID-19 Eval Order SARS-CoV-2 (PCR) Influenza Type A (PCR) Influenza Type B (PCR) RSV (RT-PCR) 09/17/20 09/17/20 09/17/20 02:51 02:51 02:51 WBC 9.71 RBC 4.56 Hgb 14.5 Hct 42.4 MCV 93.0 MCH 31.8 MCHC 34.2 RDW Std Deviation 46.4 H RDW Coeff of Sapna 13.6 Plt Count 300 MPV 9.8 Immature Gran % (Auto) 0.2 Neut % (Auto) 63.3 Lymph % (Auto) 25.4 Meeker % (Auto) 10.2 Eos % (Auto) 0.7 Baso % (Auto) 0.2 Neut # (Auto) 6.14 Lymph # (Auto) 2.47 Meeker # (Auto) 0.99 H Eos # (Auto) 0.07 Baso # (Auto) 0.02 Immature Gran # (Auto) 0.02 Sodium 140 Potassium 3.6 Chloride 110 H Carbon Dioxide 26 Anion Gap 4.0 BUN 10 Creatinine 0.80 Est Cr Clr Drug Dosing 105.7 Est GFR ( Amer) 122.2 Est GFR (Non-Af Amer) 105.4 BUN/Creatinine Ratio 12.9 Glucose 96 Calcium 8.6 Total Bilirubin 0.6 AST 15 ALT 19 Alkaline Phosphatase 56 Total Protein 8.3 H Albumin 3.7 Globulin 4.6 H Albumin/Globulin Ratio 0.8 L TSH 3.120 HCG, Qual Negative Urine Color Urine Appearance Urine pH Ur Specific Edwards Urine Protein Urine Glucose (UA) Urine Ketones Urine Blood Urine Nitrite Urine Bilirubin Urine Urobilinogen Ur Leukocyte Esterase Salicylates Urine Opiates Screen Ur Methadone, Qual Acetaminophen Urine Barbiturates Ur Phencyclidine (PCP) U Amphetamin/Meth Scrn MDMA (Ecstasy) Screen U Benzodiazepines Scrn Ur Cocaine Metabolite U Marijuana (THC) Screen U Marijuana THC Carboxy Drug Screen Comment Ethyl Alcohol mg/dL COVID-19 Eval Order SARS-CoV-2 (PCR) Influenza Type A (PCR) Influenza Type B (PCR) RSV (RT-PCR) 09/17/20 09/17/20 09/17/20 02:51 02:51 05:01 WBC RBC Hgb Hct MCV MCH MCHC RDW Std Deviation RDW Coeff of Sapna Plt Count MPV Immature Gran % (Auto) Neut % (Auto) Lymph % (Auto) Meeker % (Auto) Eos % (Auto) Baso % (Auto) Neut # (Auto) Lymph # (Auto) Meeker # (Auto) Eos # (Auto) Baso # (Auto) Immature Gran # (Auto) Sodium Potassium Chloride Carbon Dioxide Anion Gap BUN Creatinine Est Cr Clr Drug Dosing Est GFR ( Amer) Est GFR (Non-Af Amer) BUN/Creatinine Ratio Glucose Calcium Total Bilirubin AST ALT Alkaline Phosphatase Total Protein Albumin Globulin Albumin/Globulin Ratio TSH HCG, Qual Urine Color Urine Appearance Urine pH Ur Specific Edwards Urine Protein Urine Glucose (UA) Urine Ketones Urine Blood Urine Nitrite Urine Bilirubin Urine Urobilinogen Ur Leukocyte Esterase Salicylates < 1.7 L Urine Opiates Screen Ur Methadone, Qual Acetaminophen < 2 L Urine Barbiturates Ur Phencyclidine (PCP) U Amphetamin/Meth Scrn MDMA (Ecstasy) Screen U Benzodiazepines Scrn Ur Cocaine Metabolite U Marijuana (THC) Screen U Marijuana THC Carboxy Drug Screen Comment Ethyl Alcohol mg/dL < 3.0 COVID-19 Eval Order CovFluRsv at [facility] SARS-CoV-2 (PCR) Influenza Type A (PCR) Influenza Type B (PCR) RSV (RT-PCR) 09/17/20 05:01 WBC RBC Hgb Hct MCV MCH MCHC RDW Std Deviation RDW Coeff of Sapna Plt Count MPV Immature Gran % (Auto) Neut % (Auto) Lymph % (Auto) Meeker % (Auto) Eos % (Auto) Baso % (Auto) Neut # (Auto) Lymph # (Auto) Meeker # (Auto) Eos # (Auto) Baso # (Auto) Immature Gran # (Auto) Sodium Potassium Chloride Carbon Dioxide Anion Gap BUN Creatinine Est Cr Clr Drug Dosing Est GFR ( Amer) Est GFR (Non-Af Amer) BUN/Creatinine Ratio Glucose Calcium Total Bilirubin AST ALT Alkaline Phosphatase Total Protein Albumin Globulin Albumin/Globulin Ratio TSH HCG, Qual Urine Color Urine Appearance Urine pH Ur Specific Edwards Urine Protein Urine Glucose (UA) Urine Ketones Urine Blood Urine Nitrite Urine Bilirubin Urine Urobilinogen Ur Leukocyte Esterase Salicylates Urine Opiates Screen Ur Methadone, Qual Acetaminophen Urine Barbiturates Ur Phencyclidine (PCP) U Amphetamin/Meth Scrn MDMA (Ecstasy) Screen U Benzodiazepines Scrn Ur Cocaine Metabolite U Marijuana (THC) Screen U Marijuana THC Carboxy Drug Screen Comment Ethyl Alcohol mg/dL COVID-19 Eval Order SARS-CoV-2 (PCR) NEGATIVE Influenza Type A (PCR) Negative Influenza Type B (PCR) Negative RSV (RT-PCR) Negative Hospital Course (1) Depression: 09/17 -outpatient diagnosis of bipolar type II, but on my assessment patient endorses primarily depressive symptoms, with insufficient hypomanic s ymptoms to meet criteria for bipolar 2. Cannot rule out an [place] II component. Gather collateral information to help clarify diagnosis. Care coordinated with outpatient clinician, ANTONINA Oden. -Patient would benefit from psychotherapy and medication adjustments. Discussed multiple medication options, and she would like to resume lamotrigine. We will need to start with standard dose titration (25 mg daily x 2 weeks, then 50 mg daily) as she has been off of it for a week. Reviewed risks, benefits, and side effects, including Ziegler-Juancarlos syndrome, and she expressed understanding. She is unsure if the Luvox has been helpful and reports severe night sweats that are disrupting sleep, so would like to try something else. Discussed other SSRI options, and she agreed to a trial of escitalopram after review of risk, benefits, and side effects. 5 mg dose today, and start 10 mg tomorrow, and titrate as tolerated. She has had intermittent GI symptoms, unclear if triggered by abruptly stopping marijuana a week ago or stopping her psychotropic medications. Continue ondansetron as needed and monitor. -Hydroxyzine as needed for sleep and anxiety. She does not wish to resume Ser oquel as believes it caused her to feel sedated and unmotivated throughout the day (although this may be due to her regular cannabis use too). -Family meeting if willing. Patient believes she will need to medically withdrawal from school. -Encourage group attendance and participation, work on healthy coping skills and discharge safety plan. 09/18 - Continue treatment plan as above - reviewed standard titration of lamotrigine, could consider further titration of escitalopram as tolerated. - We did increase patient's prn dose of HS hydroxyzine to 75mg due to morning grogginess today - Pt requesting to know "should I be on more medication?" and discussing previous use of Vyvanse - discussed that consideration for need for additional medications could be assess once she is stabilized on her current regimen, but may not be necessary even then. - Pt simultaneously requesting rapid discharge, but also reporting clear goals for treatment here in the hospital that she hopes to achieve. - Not able to contract for safety outside of the hospital at this time 09/19 -Patient now reports she is no longer having self-injurious impulses or suicidal ideation and eager for discharge. She agrees to readdress tomorrow. Will review with treatment team in the meantime regarding clinical progress and outpatient supports presently scheduled and available to her. Due to her presentation and symptom acuity including self-injurious impulse prior to admission, she is felt to be at risk for quick relapse if discharged too soon however trajectory does appear positive and she is now denying continued suicidal ideation. -She denies any concerns associated with conversion to Lexapro so far. Psychoeducation provided regarding expected benefits of antidepressant and importance of consistent compliance with mood stabilizer treatment 09/20 -We will plan for likely discharge Monday if she is able to maintain her composure and self-control despite her frustration in the next 24 hours. She continues to deny recurrence of self-injurious impulses and denies suicidal ideation. -Patient continues to require scheduling of aftercare appointments which will need to be done on Monday. 09/21 -Discharge planning meeting with her friend, Rishabh. Patient is able to review her safety plan, denies acute safety concerns, and will be discharged home today. -Prescriptions issued for 30-day supply of medications. Follow-up with ANTONINA Valentin, later this week. Referred to [facility] Maria for therapy. (2) OCD (obsessive compulsive disorder): 09/17 -psychoeducation provided regarding diagnoses, start SSRI as above. Refer for psychotherapy (3) Cannabis abuse: 09/17 -reviewed risks of heavy cannabis use, patient states she is aware and has been educated about these previously. She actually stopped smoking pot about a week ago, and some of her symptoms may be due to withdrawal. Continue to provide education and encouragement for abstinence and development of healthier coping skills. (4) Self-cutting of wrist: Mental Health & Subst Abuse Tx Psychiatrist Name of Psychiatrist: [facility] - ANTONINA Oden Psychiatrist's Date of Appointment with Psychiatrist: 09/24/20 Time of Appointment with Psychiatrist: 2:40pm Psychiatric Appointment Comment: [address], [place] Psychiatrist Release of Information: Obtained, Reviewed and Signed Therapist Name of Therapist: [facility] Therapist's Therapy Appointment Comment: Telehealth Therapist Release of Information: Obtained, Reviewed and Signed Residential Concierge Name of Residential Concierge: [employer] Phone Number for Residential Concierge: [phone] Post Discharge Appointments Primary Care Physician Name Of Family Doctor: Lakshmi Evans [facility] Provider Appointment Comment: Pt does not want any info released to her Smoking Cessation Counseling Tobacco Cessation Medication Prescribed at Discharge: Not Applicable/Non-Smoker Contact Information Discharge Discharge Address: [address] [place] [address] Discharge Plan Discharge Items Patient Disposition: Home - Self-Care Reason For Visit: BIPOLAR DISORDER Discharge Diagnosis: Depression not otherwise specified Activity: Per Instructions section Non-emergency contact: Psychiatrist and Therapist Call non-emergency contact if: you have any medication questions and your symptoms worsen Follow-up/Referrals: [place] [Primary Care Provider] - Diet: Regular Addtl Attending Provider Instructions: SPECIAL CARE INSTRUCTIONS: 1. Follow through with your scheduled aftercare appointments. If unable to keep an appointment, please call to reschedule. 2. Take your medication only as prescribed. Medication should not be changed or stopped without the approval of your doctor. In the event of worsening symptoms or concerns about side effects, contact your doctor immediately. 3. Utilize new healthy coping skills, anger management skills, and stress management skills learned during your hospitalization. Journal feelings and process them with a support person. Identify stressors or situations that may result in relapse, deterioration or inappropriate behaviors and develop a plan to deal with those issues. 4. If your coping skills are ineffective and you are in crisis, contact your outpatient providers for direction. If unable to reach your providers, please call the [facility] CRISIS LINE AT , go to the [facility] walk-in center at [address], [place], or go to the closest Emergency Room. 5. Avoid alcohol and un-prescribed drugs. 6. You have been provided with the Mental Health Advance Directives Pamphlet for your review. AFTERCARE APPOINTMENTS: * Please call your insurance company prior to your scheduled appointment to confirm your aftercare providers are covered. Take your insurance information to your appointments. WHO TO CALL AND WHEN: Medical Emergencies: For questions or emergencies related to your hospital stay, please contact the Inpatient Behavioral Health Unit at [phone]. A school office assistant is on-call 16/01 for the Behavioral Health Unit for emergencies At any time you feel your situation is an emergency, you may also call 911 immediately. Pending Studies at Discharge: No Stand-Alone Forms: My [facility], Smoking Cessation Medications and DC Order Prescriptions: New lamotrigine [Lamictal] 25 mg Tablet 25 mg PO QAM Qty: 38 RF: 0 escitalopram oxalate 10 mg Tablet 10 mg PO QAM Qty: 30 RF: 0 Continued ondansetron HCl [Zofran] 4 mg tablet 4 mg PO Q6H PRN (Reason: nausea and vomiting) Qty: 6 RF: 0 Discontinued lamotrigine [Lamictal] 150 mg tablet 150 mg PO DAILY Qty: 7 RF: 0 fluvoxamine 100 mg tablet 100 mg PO DAILY Qty: 7 RF: 0 quetiapine 25 mg tablet 25 mg PO DAILY Qty: 7 RF: 0 Discharge Orders: Discharge Order (Routine); Ordered 09/21/20 Ordered By: Jessy Hutton Admission Data Admit Date/Time: 09/17/20 08:14 Attending Provider: Jessy Hutton Admit Provider: Jessy Hutton Primary Care Provider: [place] Other Interventions: Discharge Summary Assessment (RN) Last Done: 09/21/20 11:46 PSY Interdisciplinary Discharge Planning Last Done: 09/21/20 11:46 Coding Level of Care Code 59365 D/C day mgmt > 30 min Diagnoses Depression F32.1 Active/Remission status: currently active Depression Type: major depressive disorder Major depression episode severity: moderate Major depression recurrence: unspecified whether recurrent OCD (obsessive compulsive disorder) F42.9 Cannabis abuse F12.10 Self-cutting of wrist S61.519A; X78.9XXA
[2020-09-21] MEDS: hydrOXYzine HCl 25 MG TAB PO PRN (12:37)
== END 2020-09-21 13:26 | disposition home or self-care (01) | DRG 881 ==
LOC: ED 02:02 → 3S 08:14